=== PATIENT | female | born 1990 | race Hispanic/Latino ===

== ENCOUNTER → 2019-03-22 15:40 | Outpatient (CLI) | payer OTHER, SELFPAY | PROVIDERS: Visit Provider Family Medicine | DX: R30.0 Dysuria (principal) | CPT/HCPCS: 87086 ==

== ENCOUNTER → 2019-03-22 15:47 | Outpatient (CLI) | payer OTHER, SELFPAY ==
[2019-03-22 17:04] LABS: Appearance Urine UA CLEAR; Bilirubin Urine UA NEGATIVE (NEGATIVE); Color Urine UA YELLOW; Glucose Urine UA NEGATIVE (Negative); Ketones Urine UA 1+ (NEGATIVE); Leukocyte Esterase Urine UA NEGATIVE (NEGATIVE); Nitrite Urine UA NEGATIVE (Negative); Occult Blood Urine UA 2+ (Negative); Protein Urine UA NEGATIVE (Negative); Specific Gravity Urine UA 1.025 (1.000-1.035); Urobilinogen Urine UA 0.2 E.U./dL (0.2)
[2019-03-22 17:06] LABS: Add Manual Diff / Slide Review NO; Basophils Absolute Auto 0 /uL (0-100); Basophils Percent Auto 0.3 % (0-2); Eosinophils Absolute Auto 100 /uL (0-450); Eosinophils Percent Auto 0.7 % (2-4); Hematocrit 40.7 % (36-46); Hemoglobin 13.5 g/dL (12.0-16.0); Lymphocytes Absolute Auto 2800 /uL (1100-4500); Lymphocytes Percent Auto 25.7 % (25-40); Mean Corpuscular HGB Conc 33.2 % (30-36); Mean Corpuscular Hemoglobin 28.5 PG (26-34); Monocytes Absolute Auto 600 /uL (0-900); Monocytes Percent Auto 5.5 % (3-14); Neutrophils Absolute Auto 7400 /uL (1500-7000); Neutrophils Percent Auto 67.8 % (50-75); Platelet Count 508 X10^3/uL (150-400); Red Blood Cell Count 4.74 X10^6/uL (4.0-5.2); Red Cell Distribution Width 14.5 % (11.6-14.8); White Blood Cell Count 10.9 X10^3/uL (4.5-11.0)
[2019-03-22 17:40] LABS: Alanine Aminotransferase 28 IU/L (9-52); Albumin 4.6 g/dL (3.5-5.0); Albumin Globulin Ratio 1.5 (1.0-2.8); Alkaline Phosphatase 88 U/L (38-126); Aspartate Aminotransferase 22 IU/L (14-36); Bilirubin Total 0.5 mg/dL (0.2-1.3); Blood Urea Nitrogen 14 mg/dL (7-17); Calcium 9.4 mg/dL (8.4-10.2); Carbon Dioxide 25 mmol/L (22-32); Chloride 102 mmol/L (98-107); Cholesterol 166 mg/dL (140-199); Estimated Glomerular Filt Rate > 60.0 mL/min (>60); Glucose 80 mg/dL (70-100); HDL Cholesterol 64 mg/dL (40-60); HEMOLYSIS 29 (0-50); LDL Cholesterol Calculated 85 mg/dL (<100); Potassium 4.5 mmol/L (3.4-5.1); Sodium 139 mmol/L (137-145); Total Protein 7.6 g/dL (6.3-8.2); Triglycerides 87 mg/dL (35-150)
[2019-03-22 18:09] LABS: Thyroid Stimulating Hormone 1.05 uIU/mL (0.47-4.68)
== END ==
PROVIDERS: Visit Provider Family Medicine
DX: F98.8 Other specified behavioral and emotional disorders with onset usually occurring in childhood and adolescence (principal); Z13.220 Encounter for screening for lipoid disorders; Z13.29 Encounter for screening for other suspected endocrine disorder; Z51.81 Encounter for therapeutic drug level monitoring; Z86.2 Personal history of diseases of the blood and blood-forming organs and certain disorders involving the immune mechanism; Z87.59 Personal history of other complications of pregnancy, childbirth and the puerperium
CPT/HCPCS: 36415; 80053; 80061; 81003; 84443; 85025; 87077; 87086

== ENCOUNTER → 2019-04-14 12:15 | Outpatient (CLI) | payer OTHER, SELFPAY ==
[2019-04-14 12:54] LABS: Appearance Urine UA SL CLOUDY; Bilirubin Urine UA NEGATIVE (NEGATIVE); Color Urine UA YELLOW; Glucose Urine UA NEGATIVE (Negative); Ketones Urine UA NEGATIVE (NEGATIVE); Leukocyte Esterase Urine UA NEGATIVE (NEGATIVE); Nitrite Urine UA NEGATIVE (Negative); Occult Blood Urine UA TRACE-INTACT (Negative); Protein Urine UA NEGATIVE (Negative); Specific Gravity Urine UA 1.025 (1.000-1.035); Urobilinogen Urine UA 0.2 E.U./dL (0.2)
== END ==
PROVIDERS: Visit Provider Family Medicine
DX: R30.0 Dysuria (principal)
CPT/HCPCS: 81003

== ENCOUNTER → 2019-06-08 12:33 | Outpatient (CLI) | payer OTHER, SELFPAY ==
[2019-06-08 13:30] LABS: Add Manual Diff / Slide Review NO; Basophils Absolute Auto 100 /uL (0-100); Basophils Percent Auto 0.5 % (0-2); Eosinophils Absolute Auto 100 /uL (0-450); Hematocrit 42.6 % (36-46); Hemoglobin 14.5 g/dL (12.0-16.0); Lymphocytes Absolute Auto 2700 /uL (1100-4500); Lymphocytes Percent Auto 27.3 % (25-40); Mean Corpuscular Hemoglobin 28.6 PG (26-34); Mean Corpuscular Volume 84.1 fL (80-100); Monocytes Absolute Auto 600 /uL (0-900); Monocytes Percent Auto 6.5 % (3-14); Neutrophils Absolute Auto 6400 /uL (1500-7000); Neutrophils Percent Auto 64.7 % (50-75); Platelet Count 459 X10^3/uL (150-400); Red Blood Cell Count 5.07 X10^6/uL (4.0-5.2); Red Cell Distribution Width 14.7 % (11.6-14.8); White Blood Cell Count 9.8 X10^3/uL (4.5-11.0)
[2019-06-08 13:55] LABS: Erythrocyte Sedimentation Rate 10 MM/HR (0-20)
[2019-06-08 14:23] LABS: HEMOLYSIS < 15 (0-50); Iron 56 ug/dL (37-170)
[2019-06-08 14:35] LABS: Percent Iron Saturation 13 % (15-50); Total Iron Binding Capacity 433 ug/dL (265-497); Transferrin 350 mg/dL (206-381)
[2019-06-08 15:00] LABS: Ferritin 13.3 ng/mL (6.27-137)
== END ==
PROVIDERS: PCP Family Medicine; Visit Provider Family Medicine
DX: R68.89 Other general symptoms and signs (principal); E55.9 Vitamin D deficiency, unspecified
CPT/HCPCS: 81270; 82306; 82728; 83540; 83550; 85025; 85651

== ENCOUNTER → 2019-06-29 09:20 | Oncology outpatient (ONC) | payer OTHER, SELFPAY ==
[2019-05-24 15:10] VITALS: BP 142/85; PULSE 97; RESP 16; TEMP 37.1; O2SAT 100
--- NOTE | 2019-05-24 15:31 | P.CONONC_ITS ---
History of Present Illness - Data of Consult Consult date: 05/24/19 Primary Care Provider: Jillian Pang DO - Consult Narrative Narrative: Diagnosis: Thrombocytosis History of present illness: Cherelle Romo is a 29 year old female who is referred for further evaluation of an elevated platelet count. The patient reports that she has had a high platelet count for many years. She did see a swabber in [place]. She does not believe that any specific diagnosis was made. She tells me that she did not have a bone marrow biopsy. She thinks that she might have been tested for BRCA but denies any testing for ANTHONY-2, SHERINE-R or MPL. She was told at 1 point that she had a borderline anemia but did not take any iron replacement. She denies any unusual bleeding or bruising. No fevers chills or sweats. She does have occasional dizziness when she stands up too quickly. She notes some paresthesias in her arms and legs that improve with movement. It is difficult for her to cross or legs or even to lay still for more than 10 or 15 minutes at a time. She has had some heavy periods but has had a recent nexplanon placement. She has 2 children. The of her 1st child was complicated by eclampsia. She did require transfusion at that time. She does not recall if her platelets were normal than or not. She has never required any other transfusions. She has no history of splenomegaly. She is otherwise without complaint. Past medical history is notable for section for eclampsia as described above. She does have a history of ADD. She is otherwise healthy. Her family history is negative for any blood dyscrasias or anemia. Social history: She is . Her is in the [employer]. They recently moved to this area from he was done. She does not smoke. She has rare alcohol use. CC: Marko Moreno MD Home Medications and Allergies Home Medications Medication Instructions Recorded Confirmed Type dextroamphetamine-amphetamine ER 20 mg PO DAILY #30 cap 03/22/19 05/24/19 Rx 20 mg 24hr capsule,extend release loratadine 10 mg tablet 10 mg PO DAILY 03/22/19 05/24/19 History Allergies Allergy/AdvReac Type Severity Reaction Status Date / Time latex Allergy Mild Rash, Verified 05/13/19 11:37 swelling Medical History - Social History Smoking Status: Never smoker Review of Systems - Patient Self-Reported Symptoms SR respiratory issues: Cough, Mucous SR Cardiovascular issues: Dizzy/lightheaded SR Neuro issues: Numbness or tingling Constitutional: weight gain, normal activity level Ears, nose, mouth, throat: lightheadedness, no epistaxis, no gingival bleeding Cardiovascular: no palpitations, no dyspnea on exertion Respiratory: shortness of breath, no pain with respirations, no cough Gastrointestinal: no change in appetite, no abdominal pain Genitourinary: menorrhagia Integumentary: bleeding or bruising, no rash, no itching Hematologic/Lymphatic: no anemia, no enlarged lymph nodes Exam Vital signs: Vital Signs Temp Pulse Resp BP Pulse Ox 05/24/19 15:10 98.7 F 97 H 16 142/85 H 100 Intake and Output 05/23/19 05/24/19 05/24/19 23:59 07:59 15:59 Other: Weight 71.4 kg Patient Weight 05/24/19 23:59 Weight 71.4 kg - Constitutional positive no acute distress, positive average body habitus - Routine HEENT Exam Head: Present: normocephalic, atraumatic Eye: Present: EOMI, PERRL. Absent: conjunctival icterus, scleral injection ENT: Present: mucous membranes moist, oropharynx clear - Routine Neck Exam Present: supple. Absent: lymphadenopathy, thyromegaly - Routine Respiratory Exam Present: Clear to auscultation bilaterally. Absent: rales, wheezes - Routine Cardiovascular Exam Present: RRR, S1, S2. Absent: murmur - Routine Abdominal Exam Present: soft, normoactive bowel sounds. Absent: tenderness, organomegaly, mass - Routine Extremities Exam Absent: cyanosis, clubbing, edema - Routine Back/Spine Exam Back/Spine: Absent: vertebral tenderness - Routine Skin Exam Present: intact. Absent: petechiae, rash Comments: She does have some ecchymoses of her arm at the site of the Nexplanon placement - Routine Neurological Exam Present: alert, oriented X3 - Routine Psychiatric Exam Present: normal affect, normal thought process Results - Labs Her only CBC in our system showed a white count of 10.9 hemoglobin 13.5 hematocrit 40 and a platelet count of 657450. Assessment and Plan (1) Thrombocythemia Current visit: Yes Status: Acute A 29-year-old woman with moderate thrombocytosis that apparently has been present for quite some time. This could be a reactive process. The most common reason will be iron deficiency. Chronic inflammation for any reason could also modestly elevated platelet count. Alternatively, this could represent essential thrombocytosis. She does not have any constitutional symptoms though and no history of splenomegaly and no history of thrombosis. We will plan on checking iron studies today as well as a sed rate. Will also plan on looking for mutations in ANTHONY, CALr or MPL. She will return to clinic in about 3 weeks or so for follow-up but sooner should the need arise.
--- NOTE | 2019-05-30 11:35 | ONC.SCHED ---
sent fax to [facility] for prior auth for the Jak2 lab. I will call patient now to let them know this test is in the prior auth stage.
[2019-06-29 09:35] VITALS: BP 130/84; PULSE 74; RESP 18; TEMP 36.9; O2SAT 98
--- NOTE | 2019-06-29 09:57 | P.PNONC_ITS ---
PN -Subjective Interval history: Diagnosis: Thrombocytosis Interval history: The patient is a 29-year-old woman who was seen initially because of a mild thrombocytosis. She was not having any symptoms related to this. She denies any unusual bleeding or bruising. She did at 1 point have a mild anemia but not recently. She had seen a [employer] retail service merchandiser previously but no specific diagnosis had been made. Since her last visit here, she has continued to feel generally well. She has had a recent upper respiratory infection but denies any other changes in her health. She has not had any unusual bleeding or bruising. No fevers chills or night sweats. No shortness of breath. She has had a little bit of a cough recently. No GI complaints. - Patient Self-Reported Symptoms SR ears, nose, mouth, throat issues: Congestion SR respiratory issues: Cough, Mucous SR Cardiovascular issues: Dizzy/lightheaded SR Neuro issues: Numbness or tingling Home Medications and Allergies Home Medications Medication Instructions Recorded Confirmed Type loratadine 10 mg tablet 10 mg PO DAILY 03/22/19 06/29/19 History dextroamphetamine-amphetamine ER 20 mg PO DAILY #30 cap 06/08/19 06/29/19 Rx 20 mg 24hr capsule,extend release guaifenesin [Mucinex] 600 mg PO BID 06/29/19 06/29/19 History Allergies Allergy/AdvReac Type Severity Reaction Status Date / Time latex Allergy Mild Rash, Verified 06/08/19 12:06 swelling Exam Vital signs: Vital Signs Temp Pulse Resp BP Pulse Ox 06/29/19 09:35 98.4 F 74 18 130/84 98 Intake and Output 06/28/19 06/29/19 06/29/19 23:59 07:59 15:59 Other: Weight 73 kg Patient Weight 06/29/19 23:59 Weight 73 kg - Constitutional positive no acute distress, positive average body habitus Comments: She is not further examined. Results - Labs Laboratory Last Values Sample Type Cancelled 06/14/19 12:15 BM JAK2 V617F Intrp/Rpt Cancelled 06/14/19 12:15 CSF3R Ex 14 & 17 Mut Det Cancelled 06/14/19 12:15 JAK2 V617F Material Cancelled 06/14/19 12:15 JAK2 V617F Specimen Cancelled 06/14/19 12:15 JAK2 Mutation Cancelled 06/14/19 12:15 JAK2 V617F Cancelled 06/14/19 12:15 JAK2 Exon 12 Mutation Cancelled 06/14/19 12:15 JAK2 Exon 12 Comment Cancelled 06/14/19 12:15 JAK2 12-15 Nucleotide Chg Cancelled 06/14/19 12:15 JAK2 12-15 Amino Acid Chg Cancelled 06/14/19 12:15 JAK2 Ex 12-15 References Cancelled 06/14/19 12:15 JAK2 V617F Comment Cancelled 06/14/19 12:15 JAK3 Gene Cancelled 06/14/19 12:15 Calreticulin Exon 9 Mut Cancelled 06/14/19 12:15 MPL Exon 10 Mutation Cancelled 06/14/19 12:15 Ref Test (Refrig) 06/14/19 12:15 - Imaging Additional studies: Her white count was normal at 9.8, hemoglobin 14.5 hematocrit 42 platelets [id number] which was down slightly from previous. Her sed rate was normal at 10. Iron was 56 with a TIBC of 433 and a ferritin of 13. Testing for myeloproliferative disorder did not show any mutation in ANTHONY-2, CALR or MPL. Assessment and Plan (1) Thrombocythemia Current visit: Yes Status: Chronic A 29-year-old woman with moderate thrombocytosis that apparently has been present for quite some time. She does have a TIBC that is at the high end of normal and a ferritin that is at the low end of normal. She is not truly iron deficient but I think she might benefit from a little bit extra iron supplementation. I recommended that she try multivitamin with iron. There is no indication of an intrinsic marrow problem such as a myeloproliferative disorder. I do not think that any further testing will be helpful at this time. I think it is reasonable to follow her platelet count periodically. If her platelet count is consistently above 600,000 or if she develops abnormalities in the white cells or red cells, further evaluation may be indicated. I have not scheduled a follow-up appointment for her but would be happy to see her again in the future should the need arise.
== END ==
PROVIDERS: PCP Family Medicine
DX: D47.3 Essential (hemorrhagic) thrombocythemia (principal)
CPT/HCPCS: 36415; 81270; 99204; 99213; 99214

== ENCOUNTER → 2019-07-11 09:22 | Outpatient (CLI) | payer OTHER, SELFPAY | PROVIDERS: PCP Family Medicine; Visit Provider Nurse Practitioner | DX: R19.7 Diarrhea, unspecified (principal) | CPT/HCPCS: 86677; 87045; 87493; 87899 ==

== ENCOUNTER → 2019-07-13 15:34 | Outpatient (CLI) | payer OTHER, SELFPAY ==
[2019-07-13 20:48] LABS: Clostridium Difficile Tox PCR Negative for C. diff
== END ==
PROVIDERS: Family Provider Family Medicine; PCP Family Medicine; Visit Provider Nurse Practitioner
DX: R19.7 Diarrhea, unspecified (principal)
CPT/HCPCS: 87493

== ENCOUNTER → 2020-08-31 14:56 | Outpatient (CLI) | payer OTHER, SELFPAY ==
[2020-08-31 16:55] LABS: Urine N gonorrhoeae NOT DETECTED
[2020-08-31 16:57] LABS: Urine Chlamydia NOT DETECTED
[2020-09-01 06:36] LABS: RPR Screen Non Reactive (Non Reactive)
[2020-09-03 18:00] LABS: Hep C Virus Ab w/Reflex Quant NEGATIVE s/c (NEGATIVE)
[2020-09-03 18:01] LABS: HIV 1 & 2 Ab/Ag 4th Gen Combo NEGATIVE (NEGATIVE)
== END ==
PROVIDERS: Family Provider Family Medicine; PCP Family Medicine; Referring Provider Family Medicine; Visit Provider Family Medicine
DX: Z11.3 Encounter for screening for infections with a predominantly sexual mode of transmission (principal)
CPT/HCPCS: 86592; 86803; 87389; 87491; 87591

== ENCOUNTER 2020-09-06 17:41 | Emergency (ER) | payer OTHER, SELFPAY ==
[2020-09-06 18:10] VITALS: BP 141/85; PULSE 82; RESP 16; O2SAT 100; BMI 28.3
[2020-09-06 18:24] LABS: Bacteria Urine None Seen
[2020-09-06 18:26] LABS: Appearance Urine UA CLEAR; Bilirubin Urine UA NEGATIVE (NEGATIVE); Color Urine UA YELLOW; Glucose Urine UA NEGATIVE (Negative); Ketones Urine UA NEGATIVE (NEGATIVE); Leukocyte Esterase Urine UA NEGATIVE (NEGATIVE); Nitrite Urine UA NEGATIVE (Negative); Occult Blood Urine UA TRACE-LYSED (Negative); Protein Urine UA NEGATIVE (Negative); Specific Gravity Urine UA 1.015 (1.000-1.035); Urobilinogen Urine UA 0.2 E.U./dL (0.2)
[2020-09-06 18:56] LABS: pH Urine UA 7.5 (4.5-8.0)
[2020-09-06 19:00] LABS: Culture Indicated Urine Cult Not Indicated; RBC Urine 0-1/HPF (0-5/HPF); Squamous Epithelial Cell Urine 1-5 /HPF (0-5/HPF); WBC Urine 0-1/HPF (0-5/HPF)
[2020-09-06 20:36] VITALS: BP 134/82; PULSE 84; RESP 16; O2SAT 100
--- NOTE | 2020-09-06 22:03 | ED.FEMALEGU ---
HPI - Female Genitourinary General Chief complaint: Urogenital-Female Stated complaint: states uti Time Seen by Provider: 09/06/20 21:28 Source: patient Mode of arrival: Ambulatory History of Present Illness HPI Narrative: Patient complains of dysuria and urinary frequency. Feels like another UTI. Gets them frequently. No fever chills. No vaginal complaints. LMP 2 days ago. Denies does not want a test. No back pain. Only hurts at the end of voiding/urination. No hematuria. No past history of kidney stone MD Complaint: dysuria and UTI Related Data Home Medications Medication Instructions Recorded Confirmed guaifenesin [Mucinex] 600 mg PO BID 06/29/19 08/31/20 cholecalciferol (vitamin D3) 50 2,000 unit PO DAILY 07/10/19 08/31/20 mcg (2,000 unit) capsule promethazine 12.5 mg tablet 12.5 mg PO Q6H PRN 07/13/19 08/31/20 Previous Rx's Medication Instructions Recorded ondansetron 8 mg disintegrating 8 mg PO Q8H PRN #20 tab 07/10/19 tablet loratadine 10 mg tablet 10 mg PO DAILY #90 tab 04/18/20 dextroamphetamine-amphetamine ER 20 mg PO DAILY #30 cap 08/31/20 20 mg 24hr capsule,extend release sertraline 25 mg tablet 25 mg PO DAILY #90 tab 08/31/20 phenazopyridine [Pyridium] 200 mg PO TID PRN #6 tab 09/06/20 Allergies Allergy/AdvReac Type Severity Reaction Status Date / Time latex Allergy Mild Rash, Verified 08/31/20 14:29 swelling Review of Systems Review of Systems Narrative: GENERAL: Denies chills, fatigue, malaise, fever, sweats. HEENT: Denies sinus pain, ear pain, sore throat, difficulty swallowing RESPIRATORY: Denies dyspnea, cough CARDIOVASCULAR: Denies chest pain, palpitations, edema, GASTROINTESTINAL: Denies nausea, vomiting, abdominal pain, diarrhea, constipation, melena. : Complains dysuria, frequency, denies hematuria MUSCULOSKELETAL: denies muscle or bony pain SKIN: Denies rash, skin lesions NEUROLOGIC: Denies weakness, headache, numbness, change in speech, confusion PSYCHIATRIC: No SI or HI or hallucinations ROS Unobtainable: All systems reviewed & are unremarkable except as noted in HPI and below Patient History Medical History ADD (attention deficit disorder) (~2001) Anemia (~2016) Anxiety (~2011) Chicken pox (~1994) Essential thrombocytosis (~2011) Frequent UTI (~2007) Genital warts (~2008) Heavy menstrual period (~2008) Hematuria Irregular menstrual cycle (~2008) Painful menstrual periods (~2008) Proteinuria Routine screening for STI (sexually transmitted infection) Surgical History Anesthesia History of section (~04/11/09) Substance Use Type: marijuana Exam Narrative Exam Narrative: GENERAL: patient appears stated age. Well-nourished, well-developed patient, in no distress, not toxic not dyspneic HEAD: Normocephalic. EYES: Pupils equal round and reactive. No scleral icterus. No injection no discharge ENT: Mucous membranes moist. No drooling no tongue elevation no trismus no malocclusion NECK: Trachea midline. Non tender CARDIOVASCULAR: Regular rate and rhythm without murmurs, gallops, or rubs. RESPIRATORY: Clear to auscultation. Breath sounds equal bilaterally. No wheezes, rales, or rhonchi. GASTROINTESTINAL: Abdomen soft, non-tender, nondistended. EXTREMITIES: No gross deformities. BACK: Nontender without deformity or crepitance. No flank tenderness. NEURO: AOx4. SKIN: Warm and dry PSYCH: Not anxious, is cooperative Initial Vital Signs Initial Vital Signs: Vital Signs Pulse Rate 82 09/06/20 18:10 Respiratory Rate 16 09/06/20 18:10 Blood Pressure 141/85 H 09/06/20 18:10 Pulse Oximetry 100 09/06/20 18:10 Course Orders Ordered: ED Orders 09/06/20 18:14 Urinalysis and Microscopic Stat Discontinued Medications Phenazopyridine HCl (Phenazopyridine 100 Mg Tablet) 200 mg PO NOW ONE Stop: 09/06/20 22:04 Last Admin: 09/06/20 22:13 Dose: 200 mg Documented by: ROXANNE Reevaluation(s) Reevaluation #1: No distress at this time. Review urinalysis with patient. She agrees no antibiotics at this time but would like to try Pyridium. Time: :07 Vital Signs Vital signs: Vital Signs - 8 hr 09/06/20 20:36 09/06/20 22:15 Pulse Rate 84 88 Respiratory Rate 16 16 Blood Pressure 134/82 130/86 Pulse Oximetry 100 99 MDM - Female Genitourinary Lab Data Labs: Lab Results 09/06/20 Range/Units 18:14 Urine Color Yellow Urine Appearance Clear Urine pH 7.5 (4.5-8.0) Ur Specific [place] 1.015 (1.000-1.035) Urine Protein Negative (Negative) Urine Glucose (UA) Negative (Negative) g/dL Urine Ketones Negative (NEGATIVE) Urine Occult Blood Trace-lysed (Negative) Urine Nitrate Negative (Negative) Urine Bilirubin Negative (NEGATIVE) Urine Urobilinogen 0.2 (0.2) E.U./dL Ur Leukocyte Esterase Negative (NEGATIVE) Urine RBC 0-1/hpf (0-5/HPF) Urine WBC 0-1/hpf (0-5/HPF) Ur Squamous Epith Cells 1-5 /hpf (0-5/HPF) Urine Bacteria None seen (None) Ur Culture Indicated? Cult not indicated MDM Narrative Medical decision making narrative: No antibiotics at this time. No nitrates no leuk esterase and no bacteria on urinalysis. Will treat for dysuria with Pyridium. No antibiotics indicated this time. No indication for urine culture. Patient agrees Discharge Plan Departure Patient Disposition: Home Clinical Impression: Dysuria Instructions: DI for Dysuria -- Adult Activity Restrictions/Additional Instructions: See family doctor next week for recheck. Keep well hydrated. Return if worsening questions concerns. Prescription has been sent to your [facility] in [place] Prescriptions: New phenazopyridine [Pyridium] 200 mg tablet 200 mg PO TID PRN (Reason: pain) Qty: 6 RF: 0 No Action cholecalciferol (vitamin D3) 2,000 unit capsule 2,000 unit PO DAILY RF: 0 ondansetron 8 mg tablet,disintegrating 8 mg PO Q8H PRN (Reason: nausea and vomiting) Qty: 20 RF: 0 loratadine 10 mg tablet 10 mg PO DAILY Qty: 90 RF: 1 sertraline 25 mg tablet 25 mg PO DAILY Qty: 90 RF: 1 dextroamphetamine-amphetamine [Adderall XR] 20 mg capsule,extended release 24hr 20 mg PO DAILY Qty: 30 RF: 0 promethazine 12.5 mg tablet 12.5 mg PO Q6H PRNRF: 0 guaifenesin [Mucinex] 600 mg Tablet Extended Release 12hr 600 mg PO BID RF: 0 Referrals: Wilson Hidalgo, [Primary Care Provider] -
[2020-09-06] MEDS: PHENAZOPYRIDINE 100 MG TABLET 200 MG PO (22:13)
[2020-09-06 22:15] VITALS: BP 130/86; PULSE 88; RESP 16; O2SAT 99
== END 2020-09-06 22:15 | disposition home or self-care (01) ==
PROVIDERS: Emergency Provider Emergency Medicine; Family Provider Family Medicine; PCP Family Medicine
DX: R30.0 Dysuria (principal)
CPT/HCPCS: 81001; 99281; 99283

== ENCOUNTER 2020-09-23 19:12 | Emergency (ER) | payer OTHER, SELFPAY ==
[2020-09-23 19:19] VITALS: PULSE 102; O2SAT 100
[2020-09-23 19:20] VITALS: BP 132/73; PULSE 98; PULSE 99; RESP 16; TEMP 36.7; O2SAT 100; BMI 27.8
[2020-09-23 19:30] VITALS: PULSE 99; O2SAT 99
--- NOTE | 2020-09-23 19:34 | ED.HEATRA ---
HPI - Head Injury General Chief complaint: Head Injury Stated complaint: concussion Time Seen by Provider: 09/23/20 19:19 Source: patient Mode of arrival: Ambulatory Limitations: no limitations History of Present Illness HPI Narrative: Patient is otherwise healthy 30-year-old female who approximately 7 hours prior to arrival here in the emergency department was snowboarding and fell landing on the ground hitting her forehead. There was no loss of consciousness. She was not wearing a helmet. Since that time she has had some ?fuzziness? in her head, also headache, also some nausea. Has not tried anything for symptoms prior to arrival. No prior head injuries. Related Data Home Medications Medication Instructions Recorded Confirmed guaifenesin [Mucinex] 600 mg PO BID 06/29/19 08/31/20 cholecalciferol (vitamin D3) 50 2,000 unit PO DAILY 07/10/19 08/31/20 mcg (2,000 unit) capsule promethazine 12.5 mg tablet 12.5 mg PO Q6H PRN 07/13/19 08/31/20 Previous Rx's Medication Instructions Recorded ondansetron 8 mg disintegrating 8 mg PO Q8H PRN #20 tab 07/10/19 tablet loratadine 10 mg tablet 10 mg PO DAILY #90 tab 04/18/20 dextroamphetamine-amphetamine ER 20 mg PO DAILY #30 cap 08/31/20 20 mg 24hr capsule,extend release sertraline 25 mg tablet 25 mg PO DAILY #90 tab 08/31/20 phenazopyridine [Pyridium] 200 mg PO TID PRN #6 tab 09/06/20 Allergies Allergy/AdvReac Type Severity Reaction Status Date / Time latex Allergy Mild Rash, Verified 09/23/20 19:26 swelling Review of Systems Constitutional Constitutional: Denies fatigue, Denies fever(s) and Reports headache(s) Eyes Eyes: Denies change in vision ENT Ears, Nose, Mouth, and Throat: Denies vertigo, Reports dizziness and Reports headache(s) Cardiovascular Cardiovascular: Denies chest pain and Denies dyspnea Respiratory Respiratory: Denies dyspnea Gastrointestinal Gastrointestinal: Reports nausea Genitourinary Genitourinary: Denies dysuria Genitourinary: Denies dysuria Musculoskeletal Musculoskeletal: Denies myalgias Integumentary/Breasts Skin/Breast: Denies rash Neurologic Neurologic: Reports behavioral changes, Denies confusion, Denies vertigo, Reports dizziness and Reports headache(s) Psychiatric Psychiatric: Reports behavioral changes and Denies confusion Endocrine Endocrine: Denies fatigue Hematologic/Lymphatic Hematologic/Lymphatic: Denies easy bleeding and Denies easy bruising Allergic/Immunologic Allergic/Immunologic: Denies urticaria Patient History Medical History ADD (attention deficit disorder) (~2001) Anemia (~2016) Anxiety (~2011) Chicken pox (~1994) Essential thrombocytosis (~2011) Frequent UTI (~2007) Genital warts (~2008) Heavy menstrual period (~2008) Hematuria Irregular menstrual cycle (~2008) Painful menstrual periods (~2008) Proteinuria Routine screening for STI (sexually transmitted infection) Surgical History Anesthesia History of section (~04/11/09) Social History Smoking Status: Never smoker alcohol intake: current (occasional, 1 drink per month ) Smoking Status: Never smoker Substance Use Type: marijuana Exam Initial Vital Signs Initial Vital Signs: Vital Signs Pulse Rate 102 H 09/23/20 19:19 Pulse Oximetry 100 09/23/20 19:19 Const General: cooperative, comfortable and well developed Limitations: mental status not altered HENMT Head: normal to inspection, normocephalic, No abrasion and No contusion Ears: TM abnormal bulging bilaterally, erythematous bilaterally and with fluid behind the TM bilaterally Resp Effort & Inspection: normal respiratory effort Skin Lesions: no lesions Rashes: no rashes Neuro General: patient alert, patient awake and patient oriented x3 Cranial Nerves: CN's II-XI intact bilaterally Cognition: normal cognition Speech: speech normal Gait: normal gait Extrem General: normal to inspection and capillary refill normal Psych Appearance: grossly normal and well kempt Scores GCS [place] coma scale eye opening: Spontaneous [place] coma scale verbal response: Orientated [place] coma scale motor response: Obey commands [place] coma scale total score: 15 Nexus Score for C-Spine Focal Neurologic deficit present: No Midline spinal tenderness present: No Altered level of conciousness present: No Intoxication present: No Distracting Injury Present: No Nexus Criteria for C-spine: 0 Course Orders Ordered: ED Orders 09/23/20 19:36 CT head/brain wo con Stat Discontinued Medications Ondansetron HCl (Ondansetron 4 Mg Odt Prepack) 1 bottle MISC SEEINSTR ONE Stop: 09/23/20 20:05 Last Admin: 09/23/20 20:11 Dose: 1 bottle Documented by: Vital Signs Vital signs: Vital Signs - 8 hr 09/23/20 19:19 09/23/20 19:20 09/23/20 19:30 Temperature 98.0 F Pulse Rate 102 H 98 H 99 H Respiratory Rate 16 Blood Pressure 132/73 Pulse Oximetry 100 100 99 09/23/20 20:12 Temperature Pulse Rate 68 Respiratory Rate 14 Blood Pressure 120/79 Pulse Oximetry 99 [facility] - Head Injury Imaging Data CT scan - head: Radiologist's Impression: [address] [id number] Scan ReportSigned Patient: Cherelle Romo AMR#: [id number]: 1990Acct:[id number]/Sex: 30 / FDate of Service: 09/23/20Loc: EDAccession Number: [id number] Procedure: CT head/brain wo con Ordering Provider: Lee Fair D.O. PROCEDURE: CT HEAD/BRAIN WO CON INDICATIONS: head injury with what looks like blood behind TM TECHNIQUE: Noncontrast 4.5 mm thick angled axial sections acquired from the foramen magnum to the vertex, with coronal and sagittal reformats. For radiation dose reduction, the following was used: automated exposure control, adjustment of mA and/or kV according to patient size. COMPARISON: None. FINDINGS: Image quality: Excellent. CSF spaces: Basal cisterns are patent. No extra-axial fluid collections. Ventricles are normal in size and shape. Brain: No midline shift. No intracranial masses or hemorrhage. Lam-white matter interface is normal. Skull and face: Calvarium and visualized facial bones are intact, without suspicious lesions. Sinuses: Visualized sinuses and mastoids are clear. IMPRESSION: 1. No acute intracranial abnormalities. Dictated by: Radha Lennon M.D. on 09/23/2020 at 19:56 Approved by: Radha Lennon M.D. on 09/23/2020 at 19:59 [facility] Narrative Medical decision making narrative: Patient is alert oriented x3. GCS of 15. Neck cleared by nexus criteria. She does state she has allergies and is on a daily allergy medicine. She denied any sinus congestion. On her exam she does have fluid behind bilateral tympanic membranes with bulging tympanic membrane. The inferior portion of both of these does appear to be darker than the superior portion. This is concerning for blood behind the tympanic membrane. Also could be from chronic effusions. Secondary the fact that she hit her head and these findings a head CT was obtained. There were no signs of fractures or bleeding. I discussed with the patient concussions. We did discuss reasons to return to the emergency department. Informed her that she should contact her primary for follow-up. Will send home with nausea medicine to use as needed. She use Tylenol as needed for headaches. We did discuss which she could expect over the next couple days. She expressed understanding and agreement. Discharge Plan Departure Patient Disposition: Home Clinical Impression: Concussion without loss of consciousness Instructions: Concussion Activity Restrictions/Additional Instructions: Recommend that you take Tylenol and/or ibuprofen for any headaches. Use the nausea medicine as needed to treat any nausea or vomiting. You have no restrictions on your activities however I do recommend that you avoid any activities that potentially make your symptoms worse like we discussed. Contact your primary provider for follow-up. Return to the emergency department for any new or worsening symptoms. Prescriptions: No Action cholecalciferol (vitamin D3) 2,000 unit capsule 2,000 unit PO DAILY RF: 0 ondansetron 8 mg tablet,disintegrating 8 mg PO Q8H PRN (Reason: nausea and vomiting) Qty: 20 RF: 0 loratadine 10 mg tablet 10 mg PO DAILY Qty: 90 RF: 1 sertraline 25 mg tablet 25 mg PO DAILY Qty: 90 RF: 1 dextroamphetamine-amphetamine [Adderall XR] 20 mg capsule,extended release 24hr 20 mg PO DAILY Qty: 30 RF: 0 promethazine 12.5 mg tablet 12.5 mg PO Q6H PRNRF: 0 phenazopyridine [Pyridium] 200 mg tablet 200 mg PO TID PRN (Reason: pain) Qty: 6 RF: 0 guaifenesin [Mucinex] 600 mg Tablet Extended Release 12hr 600 mg PO BID RF: 0 Referrals: Wilson Hidalgo, [Primary Care Provider] -
[2020-09-23] MEDS: ONDANSETRON 4 MG ODT PREPACK 1 BOTTLE MISC (20:11)
[2020-09-23 20:12] VITALS: BP 120/79; PULSE 68; RESP 14; O2SAT 99
== END 2020-09-23 20:13 | disposition home or self-care (01) ==
PROVIDERS: Emergency Provider Emergency Medicine; Family Provider Family Medicine; PCP Family Medicine
DX: S06.0X0A Concussion without loss of consciousness, initial encounter (principal); H73.893 Other specified disorders of tympanic membrane, bilateral; W00.0XXA Fall on same level due to ice and snow, initial encounter; Y93.23 Activity, snow (alpine) (downhill) skiing, snowboarding, sledding, tobogganing and snow tubing
CPT/HCPCS: 70450; 99283

== ENCOUNTER → 2020-11-06 13:45 | Outpatient (CLI) | payer OTHER, SELFPAY ==
--- NOTE | 2020-11-06 13:47 | DI.RAD.S_ITS ---
PROCEDURE: XR SACRUM COCCYX MIN 2V INDICATIONS: Trauma sledding, clinical concern for fracture TECHNIQUE: 3 views of the sacrum and coccyx acquired. COMPARISON: None. FINDINGS: Bones: Minimal irregularity is seen of the coccyx, yet without a definite, displaced fracture. No suspicious bony lesions. Soft tissues: Visualized bowel gas pattern is normal. No suspicious soft tissue densities. A IMPRESSION: No [place], displaced fractures are seen, although there is minimal irregularity of the coccyx. If it would be helpful for clinical management decision making, please consider a dedicated CT for further evaluation. Dictated by: Cam Santamaria M.D. on 11/06/2020 at 13:10 Approved by: Cam Santamaria M.D. on 11/06/2020 at 13:11
== END ==
PROVIDERS: Family Provider Family Medicine; PCP Family Medicine; Referring Provider Physician Assistant; Visit Provider Physician Assistant
DX: M53.3 Sacrococcygeal disorders, not elsewhere classified (principal); S39.92XA Unspecified injury of lower back, initial encounter; Y93.23 Activity, snow (alpine) (downhill) skiing, snowboarding, sledding, tobogganing and snow tubing
CPT/HCPCS: 72220

== ENCOUNTER → 2021-07-01 14:42 | Outpatient (CLI) | payer OTHER, SELFPAY ==
[2021-07-01 16:37] LABS: COVID19 -Nasal RAPID Negative (Negative)
== END ==
PROVIDERS: Family Provider Family Medicine; PCP Family Medicine; Visit Provider Nurse Practitioner Family
DX: Z20.822 Contact with and (suspected) exposure to COVID-19 (principal)
CPT/HCPCS: 87635